=== PATIENT | female | born 1970 | race Caucasian/White ===

== ENCOUNTER 2020-09-20 20:42 | Emergency (ER) | payer MEDICAID ==
[~2020-09-20] VITALS: Ht 170.2 cm; Wt 55.0 kg
[2020-09-20 22:22] LABS: CLARITY,URINE CLEAR (Clear); COLOR,URINE YELLOW (Yellow); GLUCOSE, URINE NEGATIVE (Neg); KETONES,URINE NEGATIVE (Neg); LEUKOCYTE ESTERASE ,URINE NEGATIVE (Neg); NITRITES, URINE NEGATIVE (Neg); OCCULT BLOOD,URINE NEGATIVE (Neg); PROTEIN,URINE NEGATIVE (Neg); UROBILINOGEN,URINE 0.2 E.U/dL (0.2-1.0)
[2020-09-20 22:29] LABS: UA COLLECTION TYPE NON-SPECIFIED
[2020-09-20 22:42] LABS: URINE HCG NEGATIVE (NEG)
[2020-09-20 23:19] LABS: BASOPHILS % (AUTO) 0.4 % (0-1); EOSINOPHILS # (AUTO) 0.2 X10'3 (0-0.9); EOSINOPHILS % (AUTO) 7.4 % (0-6); HEMATOCRIT 29.4 % (35.0-45.0); HEMOGLOBIN 9.7 g/dl (12.0-16.0); LYMPHOCYTES # (AUTO) 1.4 X10'3 (1.1-4.8); LYMPHOCYTES % (AUTO) 40.7 % (21-51); MEAN CORPUSCULAR HEMOGLOBIN 26.6 PG (27.0-31.0); MEAN CORPUSCULAR VOLUME 80.5 FL (78-98); MEAN PLATELET VOLUME 6.7 FL (7.4-10.4); MONOCYTES # (AUTO) 0.4 X10'3 (0-0.9); MONOCYTES % (AUTO) 11.3 % (2-12); NEUTROPHILS # (AUTO) 1.3 X10'3 (1.8-7.7); NEUTROPHILS % (AUTO) 40.2 % (42-75); PLATELET COUNT 110 X10'3 (140-440); RED BLOOD COUNT 3.66 X10'6 (4.20-5.60); RED CELL DISTRIBUTION WIDTH 17.4 % (11.5-14.5); WHITE BLOOD COUNT 3.3 X10'3 (4.5-11.0)
--- NOTE | 2020-09-20 23:32 | NUR ---
pt to room, assumed care.
[2020-09-20 23:34] LABS: ALANINE AMINOTRANSFERASE 23 U/L (12-78); ALBUMIN 3.5 G/DL (3.4-5.0); ALBUMIN/GLOBULIN RATIO 0.9 (1.1-1.5); ALKALINE PHOSPHATASE 93 IU/L (46-116); AMYLASE 87 U/L (25-115); ANION GAP 8 (8-16); ASPARTATE AMINO TRANSFERASE 31 U/L (10-37); BILIRUBIN,TOTAL 0.7 MG/DL (0.1-1.0); BLOOD UREA NITROGEN 9 MG/DL (7-18); BUN/CREATININE RATIO 11.8 (6.6-38.0); CALCIUM 8.4 MG/DL (8.5-10.1); CHLORIDE 101 MMOL/L (99-107); CREATININE 0.76 MG/DL (0.40-0.90); GLUCOSE 116 MG/DL (70-104); LIPASE 199 U/L (73-393); SODIUM 137 MMOL/L (135-145); TOTAL CARBON DIOXIDE 28.1 MMOL/L (24-32); TOTAL PROTEIN 7.2 G/DL (6.4-8.2); eGFR 80 ML/MIN
[2020-09-20 23:40] LABS: POTASSIUM 2.8 MMOL/L (3.5-5.1)
[2020-09-20] MEDS ORDERED: ondansetron 4mg rapidly disintigrating tab PO ONE (23:40)
[2020-09-20] MEDS ORDERED: LORazepam 1 MG tablet PO ONE (23:40)
[2020-09-20] MEDS ORDERED: oxyCODONE IR 5mg (immed. release) tablet PO ONE (23:40)
[2020-09-20] MEDS ORDERED: cephalexin 250mg capsule PO ONE (23:45)
[2020-09-20] MEDS ORDERED: potassium Cl 20 mEq SR tablet PO STA (23:56)
--- NOTE | 2020-09-21 01:49 | NUR ---
report given to Cherry HINDS, care transferred
[2020-09-21] MEDS ORDERED: chlordiazePOXIDE 25mg capsule PO ONE (02:00)
[2020-09-21] MEDS ORDERED: ketorolac trometh inj. 60 MG/2 ML VIAL IM ONE (02:00)
[2020-09-21] MEDS ORDERED: MELO-100 PO (02:01)
[2020-09-21] MEDS ORDERED: HYDR-3686 PO (02:01)
[2020-09-21 02:41] VITALS: BP 102/68
== END 2020-09-21 02:43 | disposition home or self-care (01) ==
LOC: ER 20:45
DX: M79.10 Myalgia, unspecified site (principal); F41.9 Anxiety disorder, unspecified; K59.00 Constipation, unspecified; R32 Unspecified urinary incontinence; R10.84 Generalized abdominal pain; R11.2 Nausea with vomiting, unspecified; M54.5 Low back pain; Z79.899 Other long term (current) drug therapy
CPT/HCPCS: 36415; 74176; 80053; 81003; 81025; 82150; 83690; 85025; 96372; 99284; J1885

== ENCOUNTER 2021-10-05 01:04 | Emergency (ER) | payer MEDICARE, MEDICAID ==
[~2021-10-05] VITALS: Ht 167.6 cm; Wt 65.9 kg
[~2021-10-05 01:04] MED LIST: MELO-100 PO
[2021-10-05] MEDS ORDERED: metoclopramide 5 mg/ml inj IV ONE (04:05)
[2021-10-05] MEDS ORDERED: morphine 4 MG/ML inj SYRINge IM ONE (04:05)
[2021-10-05] MEDS ORDERED: normal saline 1000ml 1,000 ML IV ONE (04:05)
[2021-10-05] MEDS ORDERED: IOHEXOL 12MG/ML oral solution 500 ML BOTTLE PO ONE (05:00)
[2021-10-05 06:02] LABS: BASOPHILS % (AUTO) 0.6 % (0-1); EOSINOPHILS # (AUTO) 0.3 X10'3 (0-0.9); EOSINOPHILS % (AUTO) 4.7 % (0-6); HEMATOCRIT 31.4 % (35.0-45.0); HEMOGLOBIN 10.4 g/dl (12.0-16.0); LYMPHOCYTES # (AUTO) 1.7 X10'3 (1.1-4.8); LYMPHOCYTES % (AUTO) 31.1 % (21-51); MEAN CORPUSCULAR HEMOGLOBIN 25.1 PG (27.0-31.0); MEAN PLATELET VOLUME 7.2 FL (7.4-10.4); MONOCYTES # (AUTO) 0.7 X10'3 (0-0.9); MONOCYTES % (AUTO) 13.4 % (2-12); NEUTROPHILS # (AUTO) 2.7 X10'3 (1.8-7.7); NEUTROPHILS % (AUTO) 50.2 % (42-75); PLATELET COUNT 149 X10'3 (140-440); RED BLOOD COUNT 4.13 X10'6 (4.20-5.60); RED CELL DISTRIBUTION WIDTH 16.3 % (11.5-14.5); WHITE BLOOD COUNT 5.4 X10'3 (4.5-11.0)
[2021-10-05] MEDS ORDERED: iohexol 300mg/ml 100ml inj. ONE (06:02)
[2021-10-05] MEDS ORDERED: morphine 4 MG/ML inj SYRINge IV ONE (06:10)
[2021-10-05 06:12] LABS: ALANINE AMINOTRANSFERASE 25 U/L (12-78); ALBUMIN 3.4 G/DL (3.4-5.0); ALBUMIN/GLOBULIN RATIO 0.9 (1.1-1.5); ALKALINE PHOSPHATASE 76 IU/L (46-116); ANION GAP 9 (8-16); ASPARTATE AMINO TRANSFERASE 33 U/L (10-37); BILIRUBIN,TOTAL 0.5 MG/DL (0.1-1.0); BLOOD UREA NITROGEN 17 MG/DL (7-18); CALCIUM 8.3 MG/DL (8.5-10.1); CHLORIDE 102 MMOL/L (99-107); CREATININE 0.85 MG/DL (0.40-0.90); GLUCOSE 109 MG/DL (70-104); SODIUM 136 MMOL/L (135-145); TOTAL CARBON DIOXIDE 24.9 MMOL/L (24-32); TOTAL PROTEIN 7.1 G/DL (6.4-8.2); eGFR 70 ML/MIN
--- NOTE | 2021-10-05 06:41 | NUR ---
To CT at this time.
[2021-10-05] MEDS ORDERED: BISA10SU60 RC ×2 (07:38→07:39)
[2021-10-05] MEDS ORDERED: bisacodyl 10mg suppository rectal RC STA (08:03)
[2021-10-05 08:26] VITALS: BP 115/77
== END 2021-10-05 08:28 | disposition home or self-care (01) ==
LOC: ER 01:04
DX: R10.9 Unspecified abdominal pain (principal)
CPT/HCPCS: 36415; 74177; 80053; 85025; 96361; 96372; 96374; 96375; 99285; J2270; J2765; J3490; J7030; Q9967

== ENCOUNTER 2022-01-19 11:57 | Day surgery (SDC) | payer MEDICARE, MEDICAID ==
[2022-01-18 12:18] LABS: CLARITY,URINE CLOUDY (Clear); COLOR,URINE YELLOW (Yellow); GLUCOSE, URINE NEGATIVE (Neg); KETONES,URINE NEGATIVE (Neg); LEUKOCYTE ESTERASE ,URINE NEGATIVE (Neg); NITRITES, URINE NEGATIVE (Neg); OCCULT BLOOD,URINE NEGATIVE (Neg); PROTEIN,URINE TRACE mg/dl (Neg); UROBILINOGEN,URINE 0.2 E.U/dL (0.2-1.0)
[2022-01-18 12:23] LABS: BASOPHILS % (AUTO) 0.3 % (0-1); EOSINOPHILS # (AUTO) 0.1 X10'3 (0-0.9); EOSINOPHILS % (AUTO) 3.2 % (0-6); LYMPHOCYTES # (AUTO) 0.6 X10'3 (1.1-4.8); LYMPHOCYTES % (AUTO) 27.2 % (21-51); MEAN CORPUSCULAR HEMOGLOBIN 23.3 PG (27.0-31.0); MEAN CORPUSCULAR HGB CONC 31.8 g/dL (33.0-36.5); MEAN CORPUSCULAR VOLUME 73.5 FL (78-98); MEAN PLATELET VOLUME 8.1 FL (7.4-10.4); MONOCYTES # (AUTO) 0.2 X10'3 (0-0.9); MONOCYTES % (AUTO) 8.4 % (2-12); NEUTROPHILS # (AUTO) 1.4 X10'3 (1.8-7.7); NEUTROPHILS % (AUTO) 60.9 % (42-75); PRE OP HEMATOCRIT 32.8 % (35.0-45.0); RED BLOOD COUNT 4.47 X10'6 (4.20-5.60); RED CELL DISTRIBUTION WIDTH 19.7 % (11.5-14.5)
[2022-01-18 12:30] LABS: UA COLLECTION TYPE CLN CATCH MIDSTREAM
[2022-01-18 12:31] LABS: BACTERIA,URINE 1+ /HPF (Neg); MUCUS STRANDS MANY /LPF (Neg); RBC,URINE 0-2 /HPF (0-2); SQUAMOUS EPITHELIAL CELL,UR MANY /LPF (FEW)
[2022-01-18 12:33] LABS: PRE OP HEMOGLOBIN 10.4 g/dL (12.0-16.0); PRE OP PLATELET COUNT 96 X10'3 (140-440)
[2022-01-18 12:34] LABS: ALBUMIN 3.9 G/DL (3.4-5.0); ALBUMIN/GLOBULIN RATIO 1.1 (1.1-1.5); ALKALINE PHOSPHATASE 106 IU/L (46-116); BLOOD UREA NITROGEN 5 MG/DL (7-18); BUN/CREATININE RATIO 7.6 (6.6-38.0); CALCIUM 9.3 MG/DL (8.5-10.1); CHLORIDE 104 MMOL/L (99-107); CREATININE 0.66 MG/DL (0.40-0.90); PRE OP ALT 28 U/L (30-65); PRE OP ANION GAP 9 (8-16); PRE OP AST 34 U/L (10-37); PRE OP BILIRUB, TOTAL 0.8 MG/DL (0.0-1.0); PRE OP GLUCOSE 100 MG/DL (70-104); PRE OP POTASSIUM 3.7 MMOL/L (3.4-5.1); PRE OP SODIUM 140 MMOL/L (135-145); TOTAL CARBON DIOXIDE 26.9 MMOL/L (24-32); TOTAL PROTEIN 7.5 G/DL (6.4-8.2); eGFR > 90 ML/MIN
[2022-01-18 12:58] LABS: ANISOCYTOSIS 2+; MICROCYTOSIS 1+; PLATELET ESTIMATE DECREASED; TOTAL CELLS COUNTED 100
[2022-01-18 12:59] LABS: HYPOCHROMASIA 1+
[~2022-01-19] VITALS: Ht 170.2 cm; Wt 65.9 kg
[2022-01-19] VITALS (12 sets, daily range): BP systolic 94–121; BP diastolic 61–80
[~2022-01-19 11:57] MED LIST changes: +ACET325T55 PO; +DOCUMENT DATE & TIME OF BETA-BLOCKER PO ONE; +FOLI1TAB27 PO; +FURO40TA4 PO; +HYDR50TA65 PO; +MECL-159 PO; -MELO-100 PO; +MI-ACID PO; +MIDO5TAB4 PO; +MORP15TA PO; +MULT-1085 PO; +PANT40TA54 PO; +PROM25SU51 RC; +PROP10TA10 PO; +SPIR100T5 PO; +THIA100T70 PO; +TRAM50TA2 PO; +ceFAZolin/D5W- 1GM premix 50 ML IV ONE; +famotidine 20mg tablet PO ONE; +ringers solution, lacted 1,000 ML IV SCH
[2022-01-19] MEDS ORDERED: LORazepam 2 mg/ml vial IV ONE (14:05)
[2022-01-19 14:30] LABS: APTT 28 SECONDS (22-32); PRE OP INR 1.1 INR; PRE OP PROTIME 11.8 SECONDS (9.0-12.0)
--- NOTE | 2022-01-19 15:00 | NUR ---
ASSUMED CARE OF PATIENT. PLACED HER ON PULSE OX MONITOR.
[2022-01-19] MEDS ORDERED: ringers solution, lacted 1,000 ML IV SCH ×2 (16:05→18:45)
[2022-01-19] MEDS ORDERED: ondansetron/PF 4mg/2ml inj IV PRN ×2 (16:05→18:45)
[2022-01-19] MEDS ORDERED: morphine 2 MG/ML inj. syringe IV PRN ×2 (16:05→18:45)
[2022-01-19] MEDS ORDERED: labetalol 20mg/4ml (5mg/ml) syringe IV PRN ×2 (16:05→18:45)
[2022-01-19] MEDS ORDERED: morphine 4 MG/ML inj SYRINge IV PRN ×2 (16:05→18:45)
[2022-01-19] MEDS ORDERED: hydrALAZINE 20mg/ml inj. IV PRN ×2 (16:05→18:45)
[2022-01-19] MEDS ORDERED: HYDROmorphone/PF 0.2 MG/ML SYRINGE IV PRN ×2 (16:05)
[2022-01-19] MEDS ORDERED: bacitracin 15gm ointment TP ONE (18:01)
[2022-01-19] MEDS ORDERED: midazolam 1 mg/ML 2ml injection ONE (18:02)
[2022-01-19] MEDS ORDERED: cloNIDine hcl/PF 100mcg/ml inj ONE (18:09)
[2022-01-19] MEDS ORDERED: sevoflurane 250ml liquid IH ONE (18:16)
[2022-01-19] MEDS ORDERED: ROPIVAcaine 0.5% (5mg/ml) 30ml vial ONE ×2 (18:17)
[2022-01-19] MEDS ORDERED: propofol inj 20 ML IV ONE (18:17)
[2022-01-19] MEDS ORDERED: LIDOcaine 2% (20mg/ml) 5ml vial ONE (18:17)
[2022-01-19] MEDS ORDERED: fentaNYL /PF 50mcg/ml 5ml ampule ONE (18:17)
[2022-01-19] MEDS ORDERED: ceFAZolin 1000mg inj ONE (18:41)
[2022-01-19] MEDS ORDERED: fentaNYL/PF 50MCG/1 ML 2ML syringe IV PRN ×2 (18:45)
[2022-01-19] MEDS ORDERED: proCHLORperazine 10 MG/2 ml inj IV PRN (18:45)
[2022-01-19] MEDS ORDERED: ondansetron/PF 4mg/2ml inj ONE (18:55)
[2022-01-19] MEDS ORDERED: dexamethasone sod phosphate 4mg/ml inj. ONE (18:55)
--- NOTE | 2022-01-19 20:18 | NUR ---
Received from OR via [facility], accompanied by Anesthesiologist and report given by LINDA Anesthesiologist. PATIENT STILL SEDATED WITH ORAL AIRWAY, NO S/S OF PAIN, V/S WNL, 20G TO RIGHT FOREARM, RIGHT FOOT SPLINT BOOT MARION WRAP DRESSING C/D/I. ICE AND ELEVATE. Addendum: 01/19/22 at 2036 by Sergey Jones RN Amended: Links added.
--- NOTE | 2022-01-19 22:08 | NUR ---
ALL DISCHARGE CRITERIA HAS BEEN MET. VSS, PAIN AT A TOLERABLE LEVEL, VOIDING AND ABLE TO SAFELY AMBULATE AND TRANSFER SELF. IV TAKEN OUT WITHOUT ANY COMPLICATIONS. ALL DISCHARGE INSTRUCTIONS COVERED WITH PATIENT AND ALL QUESTIONS ANSWERED. PATIENT TAKEN OUT VIA WHEELCHAIR TO PERSONAL VEHICLE WHERE FRIEND DROVE PATIENT HOME. Addendum: 01/19/22 at 2217 by Sergey Jones RN Amended: Links added.
[2022-01-20] MEDS ORDERED: OXYC-658 PO (06:17)
[2022-01-20] MEDS ORDERED: NALO4SPR BOTHNARES (06:17)
== END 2022-01-19 22:08 | disposition home or self-care (01) ==
LOC: PAS 11:57
PROVIDERS: ATTEND Podiatrist Foot & Ankle Surgery
DX: M20.11 Hallux valgus (acquired), right foot (principal); M21.6X1 Other acquired deformities of right foot; M19.071 Primary osteoarthritis, right ankle and foot; Z79.899 Other long term (current) drug therapy; Z79.01 Long term (current) use of anticoagulants
CPT/HCPCS: 28297; 28740; 36415; 73620; 76942; 80053; 81001; 82948; 85025; 85610; 85730; 93005; A6223; C1713; C1776; J0690; J0735; J1100; J2060; J2250; J2405; J2704; J2795; J3010; J3490; J7030; J7120; Z7506; Z7508; Z7512; 76000; 85007; A4215; A4618; A6449; A7000

== ENCOUNTER 2022-01-20 03:11 | Emergency (ER) | payer MEDICARE, MEDICAID ==
[~2022-01-20] VITALS: Ht 162.6 cm; Wt 65.0 kg
[~2022-01-20 03:11] MED LIST changes: -DOCUMENT DATE & TIME OF BETA-BLOCKER PO ONE; -ceFAZolin/D5W- 1GM premix 50 ML IV ONE; -famotidine 20mg tablet PO ONE; -ringers solution, lacted 1,000 ML IV SCH
[2022-01-20] MEDS ORDERED: ondansetron/PF 4mg/2ml inj IV ONE (03:25)
[2022-01-20] MEDS ORDERED: HYDROmorphone inj. 0.5 MG/0.5 ML DISP.SYRIN IV ONE ×3 (03:25→06:40)
[2022-01-20 04:14] LABS: BASOPHILS % (AUTO) 0.2 % (0-1); EOSINOPHILS % (AUTO) 0.1 % (0-6); HEMATOCRIT 30.7 % (35.0-45.0); HEMOGLOBIN 9.9 g/dl (12.0-16.0); LYMPHOCYTES # (AUTO) 0.6 X10'3 (1.1-4.8); LYMPHOCYTES % (AUTO) 17.3 % (21-51); MEAN CORPUSCULAR HEMOGLOBIN 23.5 PG (27.0-31.0); MEAN CORPUSCULAR HGB CONC 32.3 g/dL (33.0-36.5); MEAN CORPUSCULAR VOLUME 72.8 FL (78-98); MEAN PLATELET VOLUME 8.3 FL (7.4-10.4); MONOCYTES # (AUTO) 0.1 X10'3 (0-0.9); MONOCYTES % (AUTO) 1.6 % (2-12); NEUTROPHILS % (AUTO) 80.8 % (42-75); PLATELET COUNT 94 X10'3 (140-440); RED BLOOD COUNT 4.22 X10'6 (4.20-5.60); RED CELL DISTRIBUTION WIDTH 20.4 % (11.5-14.5); WHITE BLOOD COUNT 3.7 X10'3 (4.5-11.0)
[2022-01-20 04:23] LABS: ALANINE AMINOTRANSFERASE 27 U/L (12-78); ALBUMIN 3.7 G/DL (3.4-5.0); ALKALINE PHOSPHATASE 95 IU/L (46-116); ANION GAP 12 (8-16); ASPARTATE AMINO TRANSFERASE 38 U/L (10-37); BILIRUBIN,TOTAL 0.7 MG/DL (0.1-1.0); BLOOD UREA NITROGEN 10 MG/DL (7-18); BUN/CREATININE RATIO 13.5 (6.6-38.0); CALCIUM 8.8 MG/DL (8.5-10.1); CHLORIDE 99 MMOL/L (99-107); CREATININE 0.74 MG/DL (0.40-0.90); GLUCOSE 113 MG/DL (70-104); POTASSIUM 3.7 MMOL/L (3.5-5.1); SODIUM 136 MMOL/L (135-145); TOTAL CARBON DIOXIDE 25.5 MMOL/L (24-32); TOTAL PROTEIN 7.4 G/DL (6.4-8.2); eGFR 82 ML/MIN
[2022-01-20 04:45] LABS: APTT 25 SECONDS (22-32)
[2022-01-20 04:56] LABS: ANISOCYTOSIS 3+; MICROCYTOSIS 1+; PLATELET ESTIMATE DECREASED
[2022-01-20 04:57] LABS: POLYCHROMASIA 1+
[2022-01-20 05:53] VITALS: BP 114/75
[2022-01-20] MEDS ORDERED: NALO4SPR BOTHNARES (06:17)
[2022-01-20] MEDS ORDERED: OXYC-658 PO (06:17)
--- NOTE | 2022-01-20 06:38 | NUR ---
WOUND CLEANED WITH NS, NON-ADHERENT DRESSING APPLIED. POSTERIOR LEG SPLINT RE-APPLIED.
--- NOTE | 2022-01-20 08:25 | NUR ---
PT CALLED AND INFORMED THAT SHE LEFT HER PHONE [employer] AND [facility]DS IN ER 2. PT WAS INFORMED THAT THE ITEMS WOULD BE AT THE [facility] DESK TO AWAIT BEING PICKED UP. PT STATES THAT SHE WOULD SEND SOMEONE TO PICK THE ITEMS UP. ITEMS WERE PLACED IN A GREEN LAB BAG AND PUT IN THE [facility] DESK [place]UP[place].
== END 2022-01-20 08:04 | disposition home or self-care (01) ==
LOC: ER 03:13
DX: S90.31XD Contusion of right foot, subsequent encounter (principal); Z48.00 Encounter for change or removal of nonsurgical wound dressing; X58.XXXD Exposure to other specified factors, subsequent encounter; Z88.8 Allergy status to other drugs, medicaments and biological substances; Z79.899 Other long term (current) drug therapy
CPT/HCPCS: 36415; 80053; 85008; 85025; 85610; 85730; 96374; 96375; 96376; 99285; J1170; J2405; A6258; A6449